=== PATIENT | male | born 1985 | race Caucasian/White ===

== ENCOUNTER 2017-02-09 16:42 | Emergency (ER) | payer OTHER | END 2017-02-09 16:44 | disposition home or self-care (01) | LOC: CFTX 16:42 | DX: J45.21 Mild intermittent asthma with (acute) exacerbation (principal); F17.200 Nicotine dependence, unspecified, uncomplicated; Z88.1 Allergy status to other antibiotic agents; Z88.8 Allergy status to other drugs, medicaments and biological substances | CPT/HCPCS: 99282 ==

== ENCOUNTER 2017-04-10 17:15 | Emergency (ER) | payer OTHER | END 2017-04-10 18:55 | disposition home or self-care (01) | LOC: CED 17:15 → CFTX 17:15 | DX: J45.901 Unspecified asthma with (acute) exacerbation (principal); F17.210 Nicotine dependence, cigarettes, uncomplicated | CPT/HCPCS: 99282 ==

== ENCOUNTER 2017-05-09 11:51 | Emergency (ER) | payer OTHER | END 2017-05-09 12:59 | disposition home or self-care (01) | LOC: CFTX 11:51 → CED 11:51 → CFTX 12:54 | DX: Z76.0 Encounter for issue of repeat prescription (principal); J45.909 Unspecified asthma, uncomplicated; F17.200 Nicotine dependence, unspecified, uncomplicated; Z98.890 Other specified postprocedural states; Z88.1 Allergy status to other antibiotic agents; Z88.8 Allergy status to other drugs, medicaments and biological substances | CPT/HCPCS: 94640; 99282 ==

== ENCOUNTER 2017-05-30 06:09 | Emergency (ER) | payer OTHER | END 2017-05-30 07:15 | disposition home or self-care (01) | LOC: CED 06:09 | DX: J45.901 Unspecified asthma with (acute) exacerbation (principal); F17.200 Nicotine dependence, unspecified, uncomplicated; Z88.1 Allergy status to other antibiotic agents; Z88.8 Allergy status to other drugs, medicaments and biological substances; Z91.013 Allergy to seafood | CPT/HCPCS: 94640; 99284 ==

== ENCOUNTER 2017-06-25 05:11 | Emergency (ER) | payer OTHER ==
[~2017-06-25] VITALS: Ht 193 cm; Wt 74.8 kg
--- NOTE | ~2017-06-25 | CR72 ---
[facility] A Service of [facility] & [facility] RADIOLOGY TEXT RESULTS PATIENT: ANTONIO SINGLETARY LOCATION: [facility] : 81 UNIT #: [id number] AGE: [address]: Camilo Moore MD SEX: M ORDER DR: [id number] [facility] [address] [place], [place] [address] [id number] E MR#: [id number] Acc #: [id number] NAME: ANTONIO SINGLETARY : 1985 SEX: M STUDY DATE/TIME: 06/25/2017 5:46 UNIT: [facility] ROOM: STUDY DESCRIPTION: CR Chest Single View Portable Attending Physician: Camilo Moore M.D. Ordering Physician: Camilo Moore M.D. Primary Care Physician: Devin Calles MEDICAL IMAGING REPORT This report is preliminary unless electronic signature is present EXAM Chest x-ray, 06/25/2017. HISTORY 32-year-old male in the ED complaining of a 1-week history of shortness of air and chest congestion. TECHNIQUE AP portable upright chest x-ray. FINDINGS The examination is negative. The lungs are expanded and clear. No visible pulmonary infiltrate, pneumothorax, or pleural effusion. Heart size and pulmonary vascularity are within normal limits. IMPRESSION Negative chest. Dictated by... Brett Phillips M.D. THIS IS AN ELECTRONICALLY VERIFIED REPORT Brett Phillips M.D. at 06/25/2017 3:54 PM RGW/cristy TD: 06/25/2017 12:59 JOB #: [id number] MEDICAL IMAGING REPORT Page 1 of 1 COPY
--- NOTE | ~2017-06-25 | EKG ---
PATIENT: ANTONIO SINGLETARY UNIT #: [id number] Ventricular Rate: 66 BPM Atrial Rate: 81 BPM P-R Interval: 152 ms QRS Duration: 92 ms Q-T Interval: 384 ms QTC Calculation(Bezet): 402 ms P Allen: 80 degrees Calculated R Allen: 86 degrees Calculated T Allen: 78 degrees Diagnosis Line: Sinus rhythm with marked sinus arrhythmia Diagnosis Line: Early repolarization Diagnosis Line: Otherwise normal ECG Diagnosis Line: No previous ECGs available Diagnosis Line: Confirmed by TRAY WYATT MD ([id number]) on Diagnosis Line: 06/26/2017 4:47:57 PM INTERPRETING MD: [email or web address]
== END 2017-06-25 06:13 | disposition home or self-care (01) ==
LOC: CED 05:11
DX: J45.901 Unspecified asthma with (acute) exacerbation (principal); F17.200 Nicotine dependence, unspecified, uncomplicated; Z91.013 Allergy to seafood; Z88.8 Allergy status to other drugs, medicaments and biological substances
CPT/HCPCS: 71010; 93005; 94640; 99285